=== PATIENT | male | born 1965 | race Caucasian/White ===

== ENCOUNTER 2019-03-23 11:37 | Day surgery (SDC) | payer BC ==
[2019-03-23] VITALS (7 sets, daily range): BP systolic 92–124; BP diastolic 61–85; PULSE 58–70; RESP 9–20; Ht 175.3 cm; Wt 74.7 kg
[~2019-03-23] VITALS: Ht 175.3 cm; Wt 74.7 kg
[2019-03-23] MEDS ORDERED: ABILIFY (12:57)
[2019-03-23] MEDS ORDERED: [UNRECOGNIZED DRUG - REMARK] (12:57)
[2019-03-23] MEDS ORDERED: BUPROPION (12:57)
[2019-03-23] MEDS ORDERED: CELEXA (12:57)
[2019-03-23] MEDS ORDERED: PRAVASTATIN (12:57)
[2019-03-23] MEDS ORDERED: ANTIVIRALS (12:57)
[2019-03-23] MEDS ORDERED: [UNRECOGNIZED DRUG - OTHER] (12:57)
--- NOTE | 2019-03-23 13:32 | PREAC ---
Date/Time of Note Date/Time of Note DATE: 03/23/19 TIME: 13:30 Anesthesia Eval and Record Evaluation Time Pre-Procedure Interview DATE: 03/23/19 TIME: 13:30 Age 53 Sex male NPO: 8 hrs Preoperative diagnosis Screening Planned procedure Colonoscopy Past Medical History Past Medical History: Includes Cardio: Dyslipidemia Psych: Depression Infection(s): HIV Surgery & Anesthesia Issues No known issue Meds Anticoagulation: No Beta Yasmeen within 24 hr: No Reason Beta Yasmeen not given: Pt. not on B-Yasmeen Reported Medications [Psychotherapeutic] No Conflict Check 03/23/19 [Antivirals] No Conflict Check 03/23/19 [Abilify] No Conflict Check 03/23/19 [Subotox] No Conflict Check 03/23/19 [Pravastatin] No Conflict Check 03/23/19 [Bupropion] No Conflict Check 03/23/19 [Celexa] No Conflict Check 03/23/19 Meds reviewed: Yes Allergies Coded Allergies: No Known Allergy (Unverified , 03/23/19) Allergies Reviewed: Yes Labs/Studies Labs Reviewed: Reviewed by anesthesiologist test: N/A Pre-procedure Exam Last vitals Vital Signs Date Temp Pulse Resp B/P (MAP) Pulse Ox O2 O2 Flow FiO2 Time Delivery Rate 03/23/19 60 9 102/65 95 Room Air 13:25 (77) Airway: Adequate mouth opening Mallampati: Mallampati II Teeth: Normal Lung: Normal Heart: Normal ASA Physical Status ASA physical status: 3 Emergency: None Planned Anesthetic General/MAC: MAC Pre-operative Attestations Prior to commencing anesthesia and surgery, the patient was re-evaluated, there was verification of: *The patient's identity *The results of appropriate recent lab work and preoperative vital signs *The above evaluation not changing prior to induction *Anesthetic plan, risk benefits, alternative and complications discussed with patient/family; questions answered; patient/family understands, accepts and wishes to proceed. SADIQ ESPINOSA MD Mar 23, 2019 13:32
[2019-03-23] MEDS ORDERED: PROPOFOL 60 ML ONE (13:37)
== END 2019-03-23 15:43 | disposition home or self-care (01) ==
LOC: GIL 11:37
PROVIDERS: ATTEND Internal Medicine Gastroenterology
DX: Z12.11 Encounter for screening for malignant neoplasm of colon (principal); K64.8 Other hemorrhoids; K63.89 Other specified diseases of intestine
CPT/HCPCS: 45378; 88305; Z7610